=== PATIENT | female | born 1975 | race Caucasian/White ===

== ENCOUNTER 2016-08-20 01:03 | Emergency (ER) | payer BC ==
[~2016-08-20] VITALS: Ht 175.3 cm; Wt 136.1 kg
[~2016-08-20 01:03] MED LIST: CARI350T PO; HYDR-548 PO; LEVO175T7 PO; ONDA4TAB8 SL; ZOLM5TAB10 PO
[2016-08-20] MEDS ORDERED: DIAZEPAM 2 MG TABLET PO ONE ×2 (01:15→02:00)
[2016-08-20] MEDS ORDERED: ASPIRIN 81 MG TAB.CHEW PO ONE (01:15)
[2016-08-20] MEDS ORDERED: NITROGLYCERIN OINT 1 GM PACKET TP ONE ×2 (01:15→01:28)
[2016-08-20] MEDS ORDERED: ASPIRIN 81 MG TAB.CHEW ONE (01:28)
[2016-08-20] MEDS ORDERED: DIAZEPAM 2 MG TABLET ONE ×2 (01:29→02:16)
[2016-08-20] MEDS ORDERED: HYDROMORPHONE HCL 2 MG TABLET PO ONE (02:00)
[2016-08-20 02:02] LABS: CREATININE 0.7 mg/dL (0.6-1.3); POTASSIUM 4.3 mmol/L (3.5-5.1)
[2016-08-20 02:03] LABS: BASOPHILS # (AUTO) 0.1 K/uL (0.0-8.0); BASOPHILS % (AUTO) 1.1 % (0.0-2.0); EOSINOPHILS # (AUTO) 0.1 K/uL (0.0-0.7); EOSINOPHILS % (AUTO) 0.7 % (0.0-7.0); HEMATOCRIT 37.3 % (37-47); HEMOGLOBIN 12.2 G/DL (12.0-16.0); LYMPHOCYTES # (AUTO) 1.4 K/UL (0.8-4.8); MEAN CORPUSCULAR HEMOGLOBIN 27.8 UUG (27.0-31.0); MEAN CORPUSCULAR HGB CONC 33 g/dL (32.0-37.0); MEAN CORPUSCULAR VOLUME 85.2 FL (81.0-99.0); MONOCYTES # (AUTO) 0.3 K/UL (0.1-1.30); NEUTROPHILS # (AUTO) 9.2 K/UL (1.8-8.9); NEUTROPHILS % (AUTO) 82.2 % (38.5-71.5); PLATELET COUNT (AUTO) 197 K/UL (150-450); RED BLOOD CELL COUNT(AUTO) 4.38 MIL/UL (4.2-5.4); WHITE BLOOD COUNT (AUTO) 11.1 K/UL (4.0-11.2)
[2016-08-20] MEDS ORDERED: HYDROMORPHONE HCL 2 MG TABLET ONE (02:10)
--- NOTE | 2016-08-20 02:11 | NUR ---
pt biba for chest pressure and shortness of breath. Pt NSR on monitor. Resp even and unlabored. Speaking full sentences. Lungs CTA. Pt seen by . IV established. Labs drawn and sent. Pt medicated for discomfort. Will monitor for effects of medication. Pt resting in position of comfort for self, family at bedside.
[2016-08-20 02:15] LABS: BILIRUBIN,DIRECT 0.1 mg/dL (0.0-0.2); BILIRUBIN,TOTAL 0.4 mg/dL (0.2-1.0); TOTAL PROTEIN, SERUM 7.1 g/dL (6.4-8.2)
--- NOTE | 2016-08-20 02:43 | NUR ---
Patient c/o CP which patient discibes as ku pain nonradiating that is a different cp from arrival to ER. Dr Martinez aware. Order recieved and carried out.
--- NOTE | 2016-08-20 05:10 | NUR ---
IV removed. Catheter intact and site benign. Pressure and 4x4 gauze applied to site. No bleeding noted.
[2016-08-20 05:30] VITALS: BP 100/59
--- NOTE | 2016-08-20 05:30 | NUR ---
Patient discharged to home in stable conditon with taking patient home. Written and verbal after care instructions given. Patient verbalizes understanding of instructions.
== END 2016-08-20 05:33 | disposition home or self-care (01) ==
LOC: ER 01:06
DX: R07.89 Other chest pain (principal); F41.9 Anxiety disorder, unspecified; E66.9 Obesity, unspecified; G89.4 Chronic pain syndrome; E03.9 Hypothyroidism, unspecified
CPT/HCPCS: 36415; 71010; 80048; 80076; 83880; 84484 ×2; 85025; 85730; 93005 ×2; 99285; A4663; 70030-TC

== ENCOUNTER 2018-04-29 18:59 | Emergency (ER) | payer BC ==
[~2018-04-29] VITALS: Ht 170.2 cm; Wt 113.4 kg
[~2018-04-29 18:59] MED LIST changes: +HYDR-4354 PO; -HYDR-548 PO
--- NOTE | 2018-04-29 20:31 | NUR ---
Patient discharged to home in stable conditon. Written and verbal after care instructions given. Patient verbalizes understanding of instructions.
[2018-04-29 20:33] VITALS: BP 114/80
== END 2018-04-29 20:33 | disposition home or self-care (01) ==
LOC: ER 18:59
DX: H60.92 Unspecified otitis externa, left ear (principal); G89.29 Other chronic pain; M54.5 Low back pain; E03.9 Hypothyroidism, unspecified; Z79.891 Long term (current) use of opiate analgesic; Z79.899 Other long term (current) drug therapy
CPT/HCPCS: A4663

== ENCOUNTER 2018-04-30 11:00 | Emergency (ER) | payer BC ==
[~2018-04-30] VITALS: Ht 170.2 cm; Wt 113.4 kg
--- NOTE | 2018-04-30 12:01 | NUR ---
PATIENT WAS SEEN BY . DC, RX AND FOLLOW UP INSTRUCTIONS GIVEN AND EXPLAINED TO PATIENT WHO STATES SHE UNDERSTANDS ALL INSTRUCTIONS.
== END 2018-04-30 12:03 | disposition home or self-care (01) ==
LOC: ER 11:00
DX: H60.92 Unspecified otitis externa, left ear (principal); E03.9 Hypothyroidism, unspecified; G89.29 Other chronic pain; M54.5 Low back pain; Z79.891 Long term (current) use of opiate analgesic; Z79.899 Other long term (current) drug therapy
CPT/HCPCS: A4663